=== PATIENT | female | born 1950 | race Caucasian/White ===

== ENCOUNTER 2017-05-26 19:05 | Emergency (ER) | payer OTHER, SELFPAY ==
[2017-05-26 19:05] VITALS: BP 145/75; PULSE 96; RESP 19; TEMP 36.1; O2SAT 98; BMI 24.7
--- NOTE | 2017-05-26 19:15 | RAD_ITS ---
STUDY: X-RAY CHEST REASON FOR EXAM: Female, 66 years old. Productive cough x10 days TECHNIQUE: PA and lateral views of the chest. COMPARISON: None. FINDINGS: The lungs are clear and expanded. There is no demonstrated pleural abnormality. Normal size heart. Normal mediastinum and rey. Normal visualized pulmonary arteries. There are calcified plaques of the aortic arch. Normal visualized thoracic spine. Normal visualized ribs, clavicles, and shoulders. There is no demonstrated abnormality of the visualized soft tissue structures of the upper abdomen. RAD/Chest PA and Lateral IMPRESSION: Calcified plaques of the aortic arch. No acute cardiopulmonary disease process is seen. Electronically Signed: Hermes Wiggins MD at 19:43 EDT , Service support ,
--- NOTE | 2017-05-26 21:40 | EKG12_ITS ---
Test Reason : SOB Blood Pressure : / mmHG Vent. Rate : 097 BPM Atrial Rate : 097 BPM P-R Int : 116 ms QRS Dur : 078 ms QT Int : 348 ms P-R-T Axes : 033 024 026 degrees QTc Int : 441 ms Normal sinus rhythm Normal ECG Confirmed by MONICA BROWN MD ([id number]), editor [employer] ([id number]) on 05/28/2017 3:36:37 PM Referred By: DELIA Confirmed By:MONICA BROWN MD
[2017-05-26 22:01] VITALS: PULSE 107; RESP 20
[2017-05-26 22:17] LABS: Absolute Lymphocyte Count 1.46 X10^3/ul (0.83-4.51); Absolute Neutrophil Count 14.7 X10^3/uL (2.0-7.7); Basophil# 0.01 X10^3/uL; Basophil% 0.1 % (0-1); Eosinophil# 0.02 X10^3/uL; Eosinophils% 0.1 % (0-5); Hematocrit 39.1 % (37-47); Hemoglobin 13.2 g/dl (12.0-15.0); Lymphocyte # 1.46 X10^3/ul (4.0); Lymphocyte % 8.1 % (19-41); Mean Corp Hgb Conc 33.8 g/gl (32-36); Mean Corpuscular Hgb 31.1 pg (27.0-32.0); Mean Platelet Vol. 10.9 fl (6.2-12.0); Monocyte# 1.59 X10^3/uL; Monocyte% 8.9 % (0-10); Platelet Count 237 K/mm3 (150-450); RBC Distribution Width CV 12.9 % (11.6-14.6); RBC Distribution Width SD 42.9 fl (35.1-43.9); Red Blood Count 4.25 M/mm3 (4.2-5.4); White Blood Count 17.9 K/mm3 (4.4-11.0)
[2017-05-26 22:19] LABS: Differential Indicated SCAN CRITERIA MET; POSITIVE COUNT NO; POSITIVE DIFFERENTIAL YES; POSITIVE MORPHOLOGY NO
[2017-05-26 22:26] VITALS: O2SAT 95
[2017-05-26] MEDS: Ipratropium/Albuterol Sulfate 3 ML AMPUL.NEB INHALATION (22:30)
[2017-05-26] MEDS: Ondansetron 4 MG/2 ML Vial IV (22:30)
[2017-05-26 22:33] LABS: Anion Gap 6 (5-15); BUN 19 mg/dL (7-18); BUN/Creat Ratio 20.3 RATIO (10-20); Chloride 98 mmol/L (98-107); Creatinine, Serum 0.94 mg/dL (0.55-1.02); D-Dimer Quantitative (DVT/PE) 0.68 FEU/ug/m (0.27-0.49); EST Glomerular Filtration Rate 63 mL/min (>60); Est Glom Filt Rate - Afr Amer 76 mL/min (>60); Estimated Creatinine Clearance 43.82 ml/min; Glucose 113 mg/dL (74-106); Potassium 3.7 mmol/L (3.5-5.1); Sodium Level 135 mmol/L (136-145)
[2017-05-26 22:36] VITALS: BP 126/67; PULSE 104; RESP 20; O2SAT 97; O2SAT 98
--- NOTE | 2017-05-26 22:37 | ED.RN ---
lab called with critical lab results. d-dimer 0.68. Dr. Latif made aware. no new orders at this time
[2017-05-26 22:40] LABS: Differential Comment SCANNED
--- NOTE | 2017-05-26 22:40 | CT_ITS ---
STUDY: CTA CHEST REASON FOR EXAM: Female, 66 years old. Cough, sore throat, chills, and headache x2 weeks, elevated d-dimer and white blood cell count RADIATION DOSAGE (If Supplied By Facility): CTDIvol = ( 9.28 ) mGy, DLP = ( 329.63 ) mGycm TECHNIQUE: The examination was performed with the intravenous administration of 75ML ml of Isovue 370 contrast material. Post-processing of the angiographic images was performed, with multiplanar reformation and 3D reconstruction. Individualized dose optimization techniques were used for this CT. COMPARISON: None. FINDINGS: Normal enhancement of the main pulmonary artery and right and left pulmonary arteries. Normal enhancement of the bilateral peripheral pulmonary arteries. There is no demonstrated pulmonary embolism. There are calcified plaques of the aortic arch. There is no demonstrated aortic dissection. Normal heart and pericardium. There are multiple nonpathologically enlarged mediastinal nodes measuring up to 6 mm in short axis. Normal hilar regions. Normal visualized trachea and bronchi. The lungs are well expanded. There are wispy atelectatic changes of the left and right lower lobes with associated bronchial wall thickening. Perihilar peribronchial cuffing is also noted. Normal pleura. Normal chest wall structures. Normal osseous structures. There is a small hiatal hernia. CT/CTA Chest W/WO Contrast IMPRESSION: There is no evidence of pulmonary embolus and. There are wispy atelectatic changes of the left and right lower lobes with associated bronchial wall thickening. Perihilar peribronchial cuffing is also noted. Electronically Signed: Hermes Wiggins MD at 23:35 EDT , Service support ,
[2017-05-27 00:04] VITALS: BP 106/55; PULSE 95; RESP 28; O2SAT 95
[2017-05-27 01:09] VITALS: O2SAT 96
--- NOTE | 2017-05-27 01:38 | ED.VISSUMM ---
- ER Visit Summary Date of Service: 05/27/17 Chief Complaint: Cough History of Present Illness: The patient is a 66 F presenting with cough, shortness of breath ?12 days. She states she went to urgent care was diagnosed with a URI. She was put on prednisone. This was 5 days ago and she has finished the course of prednisone. She continues to have persistent cough with sputum production. She denies fever but complains of chills. She has nausea with no vomiting. She has diarrhea. She denies abdominal pain. Denies chest pain. She states she has been taking cough medicine and is unable to sleep secondary to persistent cough. Physical Examination: Vitals are stable. Patient is afebrile. Alert no acute distress. HEENT exam is unremarkable. Mild pharyngeal erythema with no exudate. Uvula is midline. Neck is supple. Lungs are clear and equal bilaterally. Heart is regular rate and rhythm. Abdomen is soft nontender nondistended. Extremities are unremarkable. Skin is warm and dry. No focal neurologic deficit. Remainder of exam is unremarkable. Emergency Department Course and Treatment: EKG is sinus rhythm rate of 97 with no acute ischemic changes. Chest x-ray shows no acute process. CBC shows white count of 17.9. Chemistries showed glucose 113, BUN 19. Troponin is negative. D-dimer is 0.68. Influenza is negative. Due to elevated d-dimer, CTA chest was obtained which shows no evidence of PE. She is given albuterol Atrovent aerosols. She is given Zofran IV. She has improvement of her symptoms. She is resting comfortably. She was able to ambulate in the ED with a pulse ox of 92-96% on room air. She has been ill for 12 days and is concerned that she is not improving. She will be started on Levaquin. She is advised to follow-up with her primary care physician. Advised return to ED for worsening symptoms. Disposition: Discharge home Impression: Bronchitis This note was generated with [employer] dictation software. It may contain incorrect words, spelling, and punctuation that were not noted in review of the chart prior to signing ED Disposition - Plan for ED Patient: Chief Complaint: General Illness Instructions: Acute Bronchitis Prescriptions: Levofloxacin [Levaquin] 750 mg PO DAILY #5 tablet Referrals: Nghia Winters DO [Primary Care Provider] -
--- NOTE | 2017-05-27 01:50 | ED.DEP ---
ED Disposition - Plan for ED Patient: Chief Complaint: General Illness Instructions: Acute Bronchitis Prescriptions: Levofloxacin [Levaquin] 750 mg PO DAILY #5 tablet Referrals: Nghia Winters DO [Primary Care Provider] -
[2017-05-27] MEDS: levoFLOXacin 750 MG Tablet PO (02:03)
[2017-05-27 02:04] VITALS: BP 154/89; PULSE 107; RESP 18; RESP 24; O2SAT 97
== END 2017-05-27 02:05 | disposition home or self-care (01) ==
PROVIDERS: Emergency Provider Emergency Medicine; Family Provider Student in an Organized Health Care Education/Training Program; PCP Student in an Organized Health Care Education/Training Program
DX: J40 Bronchitis, not specified as acute or chronic (principal); R74.8 Abnormal levels of other serum enzymes; R19.7 Diarrhea, unspecified; R11.0 Nausea; I10 Essential (primary) hypertension; K21.9 Gastro-esophageal reflux disease without esophagitis; Z79.899 Other long term (current) drug therapy
CPT/HCPCS: 71046; 71275; 80048; 84484; 85025; 85379; 87804; 93005; 94640; 94760; 96361; 96374; 99285; J7030; J7040; Q9967; J2405

== ENCOUNTER → 2019-08-06 13:36 | Outpatient (CLI) | payer MEDICARE, SELFPAY ==
[2019-08-05 15:46] VITALS: BMI 24.7
--- NOTE | 2019-08-06 13:39 | BI_ITS ---
MAMMOGRAPHY - BILATERAL SCREENING REASON FOR EXAM: Female, 69 years old. Routine annual screening examination. PERTINENT HISTORY: Grandmother with breast cancer. Aunt with breast cancer. TECHNIQUE: Digital bilateral breast chely (3D mammographic acquisition) in the CC and MLO projections. 2-D mediolateral oblique (MLO) and craniocaudad (CC) views of both breasts were obtained. CAD: Full Field Digital Mammography with Computer Added Detection was performed. COMPARISON: Comparison is made with prior examination dated February 21, 2017. FINDINGS: Breast Composition: The breasts are heterogeneously dense, which may obscure small masses. There are no dominant masses or suspicious calcifications. Stable benign-appearing small axillary lymph nodes. No other significant abnormalities are identified. There has been no significant change since the prior study. BI/SCREEN MAMM (CAD) W/CHELY BILAT IMPRESSION: Stable bilateral screening mammogram. Yearly follow-up mammogram recommended. (A) ASSESSMENT CATEGORY: BIRADS Category 2: Benign. A letter regarding these results will be sent to the patient by the facility within 30 days. Approximately 10% of breast cancers are not detected by mammography. A normal mammogram should not delay biopsy of a clinically suspicious abnormality. [id number] Electronically Signed: Zbigniew Florez, at 13:36 EDT , Service support ,
== END ==
PROVIDERS: PCP Student in an Organized Health Care Education/Training Program; Referring Provider Obstetrics & Gynecology; Visit Provider Obstetrics & Gynecology
DX: Z12.31 Encounter for screening mammogram for malignant neoplasm of breast (principal)
CPT/HCPCS: 77063; 77067

== ENCOUNTER → 2019-12-14 12:08 | Outpatient (CLI) | payer MEDICARE, SELFPAY ==
[2019-08-05 15:46] VITALS: BMI 24.7
--- NOTE | 2019-12-14 12:43 | EKG12_ITS ---
Test Reason : PRE OP Blood Pressure : / mmHG Vent. Rate : 057 BPM Atrial Rate : 057 BPM P-R Int : 144 ms QRS Dur : 078 ms QT Int : 420 ms P-R-T Axes : 057 028 042 degrees QTc Int : 408 ms Sinus bradycardia Otherwise normal ECG Confirmed by STEPHANIE STEEN, MONICA ([id number]), website/blog editor MARIA D SWEET ([id number]) on 12/15/2019 8:47:35 AM Referred By: Dominick Ross Confirmed By:MONICA BROWN MD
[2019-12-14 12:56] LABS: Hematocrit 37.6 % (37-47); Hemoglobin 12.7 g/dL (12.0-15.0); Mean Corp Hgb Conc 33.8 g/dL (32-36); Mean Corpuscular Hgb 31.6 pg (27.0-32.0); Mean Corpuscular Volume 93.5 fL (81-99); Mean Platelet Vol. 11.5 fl (6.2-12.0); Platelet Count 176 K/mm3 (150-450); RBC Distribution Width SD 41.5 fl (35.1-43.9); Red Blood Count 4.02 M/mm3 (4.2-5.4)
[2019-12-14 13:36] LABS: Anion Gap 3 (5-15); BUN 17 mg/dL (7-18); BUN/Creat Ratio 17.4 RATIO (10-20); Calcium,Total 9.1 mg/dL (8.5-10.1); Chloride 106 mmol/L (98-107); Creatinine, Serum 0.98 mg/dL (0.55-1.02); EST Glomerular Filtration Rate 60 mL/min (>60); Est Glom Filt Rate - Afr Amer 72 mL/min (>60); Glucose 89 mg/dL (74-106); Potassium 3.5 mmol/L (3.5-5.1); Sodium Level 140 mmol/L (136-145)
== END ==
PROVIDERS: PCP Student in an Organized Health Care Education/Training Program; Referring Provider Orthopaedic Surgery; Visit Provider Orthopaedic Surgery
DX: Z01.810 Encounter for preprocedural cardiovascular examination (principal); Z01.818 Encounter for other preprocedural examination
CPT/HCPCS: 36415; 80048; 85027; 93005

== ENCOUNTER → 2019-12-16 09:10 | Outpatient (CLI) | payer MEDICARE, SELFPAY ==
[2019-08-05 15:46] VITALS: BMI 24.7
== END ==
PROVIDERS: PCP Student in an Organized Health Care Education/Training Program; Referring Provider Physician Assistant; Visit Provider Physician Assistant
DX: Z20.828 Contact with and (suspected) exposure to other viral communicable diseases (principal); Z11.59 Encounter for screening for other viral diseases
CPT/HCPCS: 87635; C9803; U0003

== ENCOUNTER → 2020-08-07 | Outpatient (CLI) | payer OTHER, SELFPAY ==
[2020-08-07 13:11] VITALS: BMI 24.7
== END | disposition home or self-care (01) ==
LOC: LABSPEC 15:30
PROVIDERS: PCP Student in an Organized Health Care Education/Training Program; Referring Provider Obstetrics & Gynecology; Visit Provider Obstetrics & Gynecology
DX: N32.81 Overactive bladder (principal); N89.8 Other specified noninflammatory disorders of vagina
CPT/HCPCS: 87070; 87086; 87205

== ENCOUNTER → 2020-08-18 13:33 | Outpatient (CLI) | payer MEDICARE, SELFPAY ==
[2020-08-07 13:11] VITALS: BMI 24.7
--- NOTE | 2020-08-18 13:35 | BI_ITS ---
MAMMOGRAPHY - BILATERAL SCREENING REASON FOR EXAM: Female, 70 years old. Routine annual screening examination. PERTINENT HISTORY: Grandmother with breast cancer. Aunt with breast cancer. TECHNIQUE: Digital bilateral breast chely (3D mammographic acquisition) in the CC and MLO projections. 2-D mediolateral oblique (MLO) and craniocaudad (CC) views of both breasts were obtained. CAD: Full Field Digital Mammography with Computer Added Detection was performed. COMPARISON: Comparison is made with prior study dated 08/06/2019 and 02/21/2017. FINDINGS: Breast Composition: The breasts are heterogeneously dense, which may obscure small masses. There are no dominant masses or suspicious calcifications. Stable small benign-appearing bilateral axillary No other significant abnormalities are identified. There has been no significant change since the prior study. BI/SCRN MAMM (CAD)W/CHELY BILAT IMPRESSION: Stable bilateral screening mammogram. Yearly follow-up mammogram recommended. (A) ASSESSMENT CATEGORY: BIRADS Category 2: Benign. A letter regarding these results will be sent to the patient by the facility within 30 days. Approximately 10% of breast cancers are not detected by mammography. A normal mammogram should not delay biopsy of a clinically suspicious abnormality. [id number] Electronically Signed: Zbigniew Florez MD at 14:22 EDT , Service support ,
== END ==
PROVIDERS: PCP Student in an Organized Health Care Education/Training Program; Referring Provider Obstetrics & Gynecology; Visit Provider Obstetrics & Gynecology
DX: Z12.31 Encounter for screening mammogram for malignant neoplasm of breast (principal); Z80.3 Family history of malignant neoplasm of breast
CPT/HCPCS: 77063; 77067

== ENCOUNTER 2021-01-27 16:30 | Emergency (ER) | payer MEDICARE, SELFPAY ==
[2021-01-27 16:32] VITALS: BP 151/82; PULSE 59; RESP 16; TEMP 36.1; O2SAT 98; BMI 24.7
--- NOTE | 2021-01-27 16:58 | ED.RN ---
Patient gives okay to give info to daughter, Teresita, if she calls. Teresita can be reached at [phone]. Patient has a visitor at this time.
--- NOTE | 2021-01-27 16:59 | EKG12_ITS ---
Test Reason : DIZZY Blood Pressure : / mmHG Vent. Rate : 059 BPM Atrial Rate : 059 BPM P-R Int : 130 ms QRS Dur : 082 ms QT Int : 426 ms P-R-T Axes : 041 009 038 degrees QTc Int : 421 ms Sinus bradycardia Otherwise normal ECG Confirmed by STEPHANIE STEEN, MONICA ([id number]), map editor MARIA D SWEET ([id number]) on 01/29/2021 10:59:15 AM Referred By: LUKAS Confirmed By:MONICA BROWN MD
--- NOTE | 2021-01-27 16:59 | CT_ITS ---
STUDY: CTA HEAD AND NECK WITH CONTRAST REASON FOR EXAM: Female, 70 years old. TIA RADIATION DOSAGE (If Supplied By Facility): CTDIvol = ( 25.47 ) mGy, DLP = ( 1298.11 ) mGycm TECHNIQUE: CT angiography was performed with a multi-detector CT scanner. Data acquisition was obtained from the skull base through the vertex following intravenous administration of IV 100mL Isovue-370. MIP images were reconstructed from the axial data set. Post-processing of the angiographic images was performed, with multiplanar reformation and 3D reconstruction. Individualized dose optimization techniques were used for this CT. COMPARISON: No relevant priors. FINDINGS: Normal bilateral petrous carotid arteries. Calcific plaquing of the right cavernous carotid artery with a normal supraclinoid bifurcation. Calcific plaquing of the left cavernous carotid artery with a normal supraclinoid bifurcation. Normal right A1 segments of the anterior cerebral artery. Normal left A1 segments of the anterior cerebral artery. Normal intact anterior communicating artery (ACOM). Normal bilateral A2 segments of the anterior cerebral arteries. Normal right M1 and M2 segments of the middle cerebral arteries, with a normal M1 bifurcation. Normal left M1 and M2 segments of the middle cerebral arteries, with a normal M1 bifurcation. Nonvisualized right posterior communicating artery (PCOM consistent with normal variant). Normal left posterior communicating artery (PCOM). Normal bilateral vertebral arteries. Normal basilar artery with a normal basilar bifurcation. The visualized bilateral superior cerebellar (SCA) arteries are normal. Normal bilateral P1, P2 and visualized P3 segments of the posterior cerebral arteries. There is no demonstrated aneurysm of the [place]. AORTIC ARCH: Normal visualized aortic arch. Normal origins of the brachiocephalic, left common carotid, and left subclavian arteries. RIGHT CAROTID ARTERIES: Mild calcific plaquing of the right common carotid artery (CCA). Mild to moderate calcific and soft plaquing of the right common carotid bulb. Mild calcific plaquing of the origin of the right internal carotid (ICA) artery without a hemodynamically significant stenosis. Normal visualized cervical portion of the right internal carotid artery. Normal origin of the right external carotid artery (ECA). LEFT CAROTID ARTERIES: Normal left common carotid artery (CCA). Mild to moderate calcific plaquing of the left common carotid bulb. Moderate calcific plaquing of origin of the left internal carotid (ICA) artery without a hemodynamically significant stenosis. Mild calcific plaquing of the visualized cervical portion of the left internal carotid artery. Normal origin of the left external carotid artery (ECA). VERTEBRAL ARTERIES: Normal bilateral vertebral arteries. CT/CTA Head AND Neck W/ Contrast IMPRESSION: Mild atherosclerotic changes of the brain. Moderate atherosclerotic changes of the cervical carotids slightly worse on the left without evidence for hemodynamically significant stenosis utilizing NASCET criteria Electronically Signed: Justo Tubbs MD at 18:50 EST , Service support ,
--- NOTE | 2021-01-27 17:01 | EX.ED.DYSGE1 ---
HPI History of Present Illness Chief Complaint: Dizziness Informant: patient and spouse/S.O. Onset/Context/Timing Onset: Yesterday Current Severity: Mild Maximum Severity: Severe Narrative Narrative: Patient presents with recurrent episodes of intermittent dizziness and nausea. She states initial episode occurred yesterday while she was at a local drugstore. They called her up to the counter to warehouse order picker her medication and she felt very dizzy and had to hold onto items. She states she had difficulty speaking and was dropping items. She is unsure if it was just with one arm. Her was called and picked her up. She states she went to bed early last night when she woke up this morning she felt back to baseline. As the day has gone on she has had a couple separate episodes where she gets very dizzy and weak again. denies that she has had difficulty with speech today. [facility] Medical History Anxiety Hyperlipidemia Hypertension Home Medications acyclovir 200 mg PO DAILY 05/26/17 [History Last Taken Unknown] hydrochlorothiazide 25 mg PO DAILY 05/26/17 [History Last Taken Unknown] lisinopril 10 mg PO DAILY 05/26/17 [History Last Taken Unknown] oxybutynin chloride 5 mg PO DAILY 05/26/17 [History Last Taken Unknown] lactobacillus combination no.8 3 billion cell capsule 3,000 mmu cells PO DAILY 08/05/19 [History Last Taken Unknown] omeprazole 20 mg capsule,delayed release 20 mg PO DAILY 08/05/19 [History Last Taken Unknown] rosuvastatin 20 mg tablet 20 mg PO DAILY 08/05/19 [History Last Taken Unknown] turmeric 400 mg capsule mg PO 08/07/20 [History Last Taken Unknown] Allergy/AdvReac Type Severity Reaction Status Date / Time acetaminophen [From Tylenol] Allergy Mild other Verified 01/27/21 16:31 amoxicillin [From Augmentin] Allergy Mild other Verified 01/27/21 16:31 clavulanic acid Allergy Mild other Verified 01/27/21 16:31 [From Augmentin] codeine Allergy Mild other Verified 01/27/21 16:31 erythromycin base Allergy Mild other Verified 01/27/21 16:31 nitrofurantoin Allergy Mild other Verified 01/27/21 16:31 [From Macrobid] Sulfa (Sulfonamide Allergy Mild other Verified 01/27/21 16:31 Antibiotics) sulfamethoxazole Allergy Mild other Verified 01/27/21 16:31 [From Bactrim] Tetracyclines Allergy Mild other Verified 01/27/21 16:31 trimethoprim [From Bactrim] Allergy Mild other Verified 01/27/21 16:31 venom-honey bee Allergy Mild other Verified 01/27/21 16:31 Family History Aunt Breast cancer Grandmother Breast cancer Surgical History H/O hernia repair Tubal ligation status Social History Smoking Status: Never smoker alcohol intake: current details: social substance use type: does not use caffeine: Yes what type of physical activity do you participate in: walking seatbelt use: always do you feel safe at home: Yes additional social history: Pop- both are retired ROS ROS ED Constitutional Constitutional ED: Denies chills or fever(s) Eyes Eyes: Denies change in vision ENT ENT ED: Denies sore throat Cardiovascular Cardiovascular: Denies chest pain or palpitations Respiratory/Chest Respiratory/Chest: Denies cough or dyspnea Gastrointestinal Gastrointestinal: Reports nausea; Denies abdominal pain, diarrhea or vomiting Genitourinary Genitourinary ED: Denies dysuria Musculoskeletal Musculoskeletal: Denies back pain Integumentary Denies rash Neurologic Neurologic: Reports weakness; Denies headache(s) or paresthesias Allergic/Immunologic Allergic/Immunologic ED: Denies urticaria EXAM Physical Exam Const Vital Signs: 01/27/21 16:32 01/27/21 18:04 Temperature 96.9 F L Temperature Source Temporal Pulse Rate 59 L 67 Respiratory Rate 16 21 H Blood Pressure 151/82 H 145/85 H Blood Pressure Mean 105 105 Pulse Ox 98 99 Oxygen Delivery Method Room Air Room Air Positive well nourished and well developed General Appearance ED: well developed HEENT Reports moist mucous membranes Eyes PERRL and EOMs intact bilaterally Neck supple Chest Wall inspection of chest normal and palpation of chest normal Resp normal respiratory effort and clear to auscultation bilaterally Cardio regular rate and regular rhythm GI normal to inspection, nondistended, normoactive bowel sounds and non-tender Palpation: soft Neuro oriented x3 Neuro Narrative: Resting with eyes closed. Will open eyes to voice. No focal neurologic deficits. Sensorium / Orientation: alert Psych mental status grossly normal Skin no rashes or lesions noted MDM MDM MDM Narrative Medical decision making narrative: Patient describes intermittent dizziness along with some problems dropping items and some difficulty with speech yesterday. In light of this TIA work-up was pursued. EKG, labs, CTA head and neck ordered. Urinalysis and Covid test obtained. Lab Data Attestation: I reviewed the patient's lab results. Labs: Laboratory Results - last 24 hr 01/27/21 01/27/21 01/27/21 16:52 16:52 18:05 WBC 4.3 L RBC 4.12 L Hgb 12.9 Hct 37.6 MCV 91.3 MCH 31.3 MCHC 34.3 RDW Std Deviation 41.1 RDW Coeff of Inez 12.3 Plt Count 169 MPV 11.5 Immature Gran % (Auto) 0.200 Neut % (Auto) 57.0 Lymph % (Auto) 29.1 Steele % (Auto) 10.9 H Eos % (Auto) 2.6 Baso % (Auto) 0.2 Absolute Neuts (auto) 2.5 Absolute Lymphs (auto) 1.25 Nucleated RBC % 0 Sodium 141 Potassium 3.7 Chloride 107 Carbon Dioxide 28.0 Anion Gap 6 BUN 19 H Creatinine 0.98 Estim Creat Clear Calc 41.64 Est GFR (MDRD) Af Amer 72 Est GFR (MDRD) Non-Af 60 BUN/Creatinine Ratio 19.4 Glucose 113 H Calcium 9.0 Total Bilirubin 0.70 Direct Bilirubin 0.21 AST 21 ALT 22 Alkaline Phosphatase 99 Troponin I High Sens 6 Total Protein 6.8 Albumin 3.6 Globulin 3.2 Urine Color Straw Urine Clarity Clear Urine pH 6.5 Ur Specific Jay 1.010 Urine Protein Negative Urine Glucose (UA) Normal Urine Ketones Negative Urine Occult Blood Negative Urine Nitrite Negative Urine Bilirubin Negative Urine Urobilinogen Normal Ur Leukocyte Esterase Negative Urine RBC 0-5 SEEN Urine WBC 0-5 SEEN Ur Squamous Epith Cells 0-5 SEEN Urine Bacteria 0 SEEN Urine Mucus 0 SEEN Radiography Diagnostic Testing: Clinical Impression(s) from Imaging Studies Head/Neck CTA 01/27/21 16:59 IMPRESSION: Mild atherosclerotic changes of the brain. Moderate atherosclerotic changes of the cervical carotids slightly worse on the left without evidence for hemodynamically significant stenosis utilizing NASCET criteria Electronically Signed: Justo Tubbs MD at 18:50 EST , Service support , EKG Initial EKG: Attestation: I personally reviewed and interpreted this EKG as follows: Interpretation: Sinus Bradycardia (Sinus bradycardia 59 bpm. No acute ischemia.) Treatment and Re-Evaluation Comments:: On repeat evaluation patient resting comfortably. Work-up here is unremarkable. Patient has been up ambulating in the halls and states she feels back to baseline currently. We discussed concern for possible TIA and I advised her the ultimate test would be MRI. She would prefer to go home and not stay for this. I will speak with her PCP or whoever is on-call tonight to help arrange close follow-up. Patient is given close follow-up and return instructions. Discharge Plan Triage Chief Complaint: Dizziness ED Provider: Sanjuana Fuller Dx/Rx/DC Orders Clinical Impression: Dizziness Instructions: ED Dizziness, Uncertain Cause Prescriptions: No Action omeprazole 20 mg capsule,delayed release(DR/EC) 20 mg PO DAILY RF: 0 rosuvastatin [Crestor] 20 mg tablet 20 mg PO DAILY RF: 0 Adult Probiotic 3 billion cell capsule 3,000 mmu cells PO DAILY RF: 0 turmeric 400 mg capsule PO RF: 0 lisinopril 10 MG tablet 10 mg PO DAILY RF: 0 oxybutynin chloride 5 MG tablet 5 mg PO DAILY RF: 0 acyclovir 200 MG capsule 200 mg PO DAILY RF: 0 hydrochlorothiazide 25 MG tablet 25 mg PO DAILY RF: 0 Primary Care Provider: Nghia Winters Referrals: Nghia Winters, [Primary Care Provider] - As soon as possible Disposition Disposition: Home, Self Care
[2021-01-27 17:17] LABS: Absolute Lymphocyte Count 1.25 X10^3/uL (0.83-4.51); Absolute Neutrophil Count 2.5 X10^3/uL (2.0-7.7); Basophil# 0.01 X10^3/uL; Basophil% 0.2 % (0-1); Eosinophil# 0.11 X10^3/uL; Eosinophils% 2.6 % (0-5); Hematocrit 37.6 % (37-47); Hemoglobin 12.9 g/dL (12.0-15.0); Lymphocyte # 1.25 X10^3/ul (0.83-4.51); Lymphocyte % 29.1 % (19-41); Mean Corp Hgb Conc 34.3 g/dL (32-36); Mean Corpuscular Hgb 31.3 pg (27.0-32.0); Mean Corpuscular Volume 91.3 fL (81-99); Mean Platelet Vol. 11.5 fl (6.2-12.0); Monocyte# 0.47 X10^3/uL; Monocyte% 10.9 % (0-10); NRBC Flagged by Analyzer 0 % (0-5); Neutrophil # 2.45 X10^3/uL (2.7-7.7); Platelet Count 169 K/mm3 (150-450); RBC Distribution Width CV 12.3 % (11.6-14.6); RBC Distribution Width SD 41.1 fl (35.1-43.9); Red Blood Count 4.12 M/mm3 (4.2-5.4); White Blood Count 4.3 K/mm3 (4.4-11.0)
[2021-01-27 17:34] LABS: AST(SGOT) 21 U/L (15-37); Alanine Aminotransfer ALT/SGPT 22 U/L (13-56); Albumin, Serum 3.6 g/dL (3.2-5.0); Alkaline Phosphatase 99 U/L (45-117); Anion Gap 6 (5-15); BUN 19 mg/dL (7-18); BUN/Creat Ratio 19.4 RATIO (10-20); Bilirubin, Direct 0.21 mg/dL (0.00-0.30); Chloride 107 mmol/L (98-107); Creatinine, Serum 0.98 mg/dL (0.55-1.02); EST Glomerular Filtration Rate 60 mL/min (>60); Est Glom Filt Rate - Afr Amer 72 mL/min (>60); Estimated Creatinine Clearance 41.64 ml/min; Globulin 3.2 g/dL (2.2-4.2); Glucose 113 mg/dL (74-106); Potassium 3.7 mmol/L (3.5-5.1); Protein, Total 6.8 g/dL (6.4-8.2); Sodium Level 141 mmol/L (136-145); Troponin-I HS 6 pg/mL (3.0-54.0)
[2021-01-27 18:04] VITALS: BP 145/85; PULSE 67; RESP 21; O2SAT 99
[2021-01-27 18:11] LABS: Bacteria 0 SEEN /hpf (None Seen); Mucous, Urine 0 SEEN /hpf (<or=2+)
[2021-01-27 18:12] LABS: Color, Urine Straw (Yellow); Glucose, Dipstick Normal (Normal); Ketone-Dipstick Negative (Negative); Leukocyte Esterase-Dipstick Negative /ul (Negative); Nitrite-Dipstick Negative (Negative); Occult Blood-Urine Negative /ul (Negative); Protein-Dipstick Negative (Negative); Urine Bilirubin Dipstick Negative (Negative); Urine Clarity Clear (Clear); Urine Urobilinogen Normal (Normal); Urine pH 6.5 (5.0 - 8.0)
[2021-01-27 18:19] LABS: White Blood Cells 0-5 SEEN /hpf (0-5)
[2021-01-27 18:20] LABS: Red Blood Cells-Urine 0-5 SEEN /hpf (0-5); Squamous Epithelial Cells - UA 0-5 SEEN /hpf (5-10)
[2021-01-27 19:12] VITALS: BP 151/91; PULSE 70; RESP 18; O2SAT 98
== END 2021-01-27 19:14 | disposition home or self-care (01) ==
PROVIDERS: Emergency Provider Emergency Medicine; PCP Student in an Organized Health Care Education/Training Program
DX: R42 Dizziness and giddiness (principal); R11.0 Nausea; Z20.822 Contact with and (suspected) exposure to COVID-19; I10 Essential (primary) hypertension; E78.5 Hyperlipidemia, unspecified
CPT/HCPCS: 70496; 70498; 80048; 80076; 81001; 84484; 85025; 87426; 93005; 99284; Q9967; A4216

== ENCOUNTER → 2021-08-20 | Outpatient (CLI) | payer MEDICARE, SELFPAY ==
--- NOTE | 2021-08-20 15:49 | BI_ITS ---
MAMMOGRAPHY - BILATERAL SCREENING REASON FOR EXAM: Female, 71 years old. Routine annual screening examination. PERTINENT HISTORY: Grandmother with breast cancer. On with breast cancer. TECHNIQUE: Digital bilateral breast chely (3D mammographic acquisition) in the CC and MLO projections. 2-D mediolateral oblique (MLO) and craniocaudad (CC) views of both breasts were obtained. CAD: Full Field Digital Mammography with Computer Added Detection was performed. COMPARISON: Comparison is made with prior study dated 08/18/2020 and 08/06/2019. FINDINGS: Breast Composition: The breasts are heterogeneously dense, which may obscure small masses. There are no dominant masses or suspicious calcifications. Stable glandular asymmetry seen along the medial aspect of the left breast on the craniocaudad view. Stable small benign appearing bilateral axillary nodes. No other significant abnormalities are identified. There has been no significant change since the prior study. BI/SCRN MAMM (CAD)W/CHELY BILAT IMPRESSION: Stable bilateral screening mammogram. Yearly follow-up mammogram recommended. (A) ASSESSMENT CATEGORY: BIRADS Category 2: Benign. A letter regarding these results will be sent to the patient by the facility within 30 days. Approximately 10% of breast cancers are not detected by mammography. A normal mammogram should not delay biopsy of a clinically suspicious abnormality. [id number] Electronically Signed: Zbigniew Florez MD at 8:12 EDT ,
== END | disposition home or self-care (01) ==
LOC: OPBI 15:47
PROVIDERS: PCP Student in an Organized Health Care Education/Training Program; Visit Provider Student in an Organized Health Care Education/Training Program
DX: Z12.31 Encounter for screening mammogram for malignant neoplasm of breast (principal)
CPT/HCPCS: 77063; 77067

== ENCOUNTER 2021-10-10 15:36 | Emergency (ER) | payer MEDICARE, SELFPAY ==
[2021-10-10 15:37] VITALS: BP 158/82; PULSE 71; RESP 16; TEMP 36.7; O2SAT 99; BMI 23.9
--- NOTE | 2021-10-10 15:58 | EKG12_ITS ---
Test Reason : CP Blood Pressure : / mmHG Vent. Rate : 057 BPM Atrial Rate : 057 BPM P-R Int : 144 ms QRS Dur : 086 ms QT Int : 412 ms P-R-T Axes : 048 002 015 degrees QTc Int : 401 ms Sinus bradycardia Minimal voltage criteria for LVH, may be normal variant ( R in aVL ) Borderline ECG Confirmed by OK STEEN, TALISHA ([id number]), supervising editor news reel MARIA D SWEET ([id number]) on 10/15/2021 11:09:54 AM Referred By: Petty Confirmed By:KORIN CONNELL MD
--- NOTE | 2021-10-10 15:59 | ED.VIS.CHEST ---
HPI History of Present Illness Chief Complaint: Chest Pain Informant: patient and PCP Narrative Narrative: 71-year-old female history of hypercholesterolemia, hypertension, and GERD presenting to the emergency department chief complaint of chest pain. Patient states for the past 3 days she has had waxing and waning/intermittent sharp chest pain. She states its worse with food. Does not radiate anywhere. She denies any associated shortness of breath or nausea or sweating. She states that typically she has had this in the past and would take some ibuprofen and it resolved but this was different and that it seemed to stick around more. Today however she has not had any symptoms. She states she still feels slightly funny in her chest. She went to see her PCP and was referred to the emergency department for admission. Patient denies any black or bloody stools. She states that she has duodenal reflux. She is takes omeprazole and a antacid. No back pain. No arm or leg symptoms. She states that her familial heart disease is significant only for rheumatic heart and her brother. She notes that she has a history of carotid artery stenosis but they are not to the point where they need to be intervened upon. She is a non-smoker. [facility] Medical History Anxiety Hyperlipidemia Hypertension Home Medications acyclovir 200 mg capsule 200 mg PO DAILY 05/26/17 [History Last Taken Unknown] hydrochlorothiazide 25 mg tablet 25 mg PO DAILY 05/26/17 [History Last Taken Unknown] lisinopril 10 mg tablet 10 mg PO DAILY 05/26/17 [History Last Taken Unknown] oxybutynin chloride 5 mg tablet,extended release 24 hr 5 mg PO DAILY 05/26/17 [History Last Taken Unknown] lactobacillus combination no.8 3 billion cell capsule (Adult Probiotic) 3,000 mmu cells PO DAILY 08/05/19 [History Last Taken Unknown] omeprazole 20 mg capsule,delayed release 20 mg PO DAILY 08/05/19 [History Last Taken Unknown] rosuvastatin 20 mg tablet (Crestor) 20 mg PO DAILY 08/05/19 [History Last Taken Unknown] turmeric 400 mg capsule mg PO 08/07/20 [History Last Taken Unknown] sucralfate 1 gram tablet (Carafate) 1 g PO Q6H #56 tabs 10/10/21 [Rx Last Taken Unknown] Allergy/AdvReac Type Severity Reaction Status Date / Time acetaminophen [From Tylenol] Allergy Mild other Verified 10/10/21 15:39 amoxicillin [From Augmentin] Allergy Mild other Verified 10/10/21 15:39 clavulanic acid Allergy Mild other Verified 10/10/21 15:39 [From Augmentin] codeine Allergy Mild other Verified 10/10/21 15:39 erythromycin base Allergy Mild other Verified 10/10/21 15:39 nitrofurantoin Allergy Mild other Verified 10/10/21 15:39 [From Macrobid] Sulfa (Sulfonamide Allergy Mild other Verified 10/10/21 15:39 Antibiotics) sulfamethoxazole Allergy Mild other Verified 10/10/21 15:39 [From Bactrim] Tetracyclines Allergy Mild other Verified 10/10/21 15:39 trimethoprim [From Bactrim] Allergy Mild other Verified 10/10/21 15:39 venom-honey bee Allergy Mild other Verified 10/10/21 15:39 Family History Aunt Breast cancer Grandmother Breast cancer Surgical History H/O hernia repair Tubal ligation status Social History Smoking Status: Never smoker alcohol intake: current details: social substance use type: does not use caffeine: Yes what type of physical activity do you participate in: walking seatbelt use: always do you feel safe at home: Yes additional social history: Daisha marte are retired ROS ROS ED Constitutional Constitutional ED: Denies chills or weight loss Eyes Eyes: Denies change in vision or diplopia ENT ENT ED: Denies ear pain, rhinorrhea or sore throat Cardiovascular Cardiovascular: Reports chest pain; Denies orthopnea, palpitations or racing heartbeat Respiratory/Chest Respiratory/Chest: Denies cough, dyspnea, dyspnea on exertion or orthopnea Gastrointestinal Gastrointestinal: Denies abdominal pain, diarrhea, melena, nausea or vomiting Genitourinary Genitourinary ED: Denies dysuria, hematuria or urinary frequency Musculoskeletal Musculoskeletal: Denies arthralgias or myalgias Integumentary Denies abscess or rash Neurologic Neurologic: Denies headache(s) or weakness Psychiatric Psychiatric: Denies anxiety, depression, suicidal ideation or suicidal thoughts Endocrine Endocrinology: Denies polydipsia, polyphagia or polyuria Allergic/Immunologic Allergic/Immunologic ED: Denies mouth swelling, tongue swelling or urticaria EXAM Physical Exam Const Vital Signs: 10/10/21 15:37 10/10/21 16:10 10/10/21 16:11 Temperature 98.1 F Temperature Source Temporal Pulse Rate 71 60 Respiratory Rate 16 14 Respiratory Effort Normal Non-Labored Blood Pressure 158/82 H 148/99 H Blood Pressure Mean 107 115 Pulse Ox 99 98 Oxygen Delivery Method Room Air Room Air Positive well nourished and well developed General Appearance ED: well developed HEENT Reports normocephalic, head/scalp atraumatic and moist mucous membranes Eyes PERRL and EOMs intact bilaterally Neck no lymphadenopathy, supple and no JVD Resp normal respiratory effort and clear to auscultation bilaterally Cardio regular rate, regular rhythm and no murmurs GI normal to inspection, nondistended, normoactive bowel sounds and non-tender Palpation: soft Back/Spine no CVA tenderness and normal ROM Extremity normal to inspection General Extremety ED: Negative for edema General Extremity: Negative for edema Neuro oriented x3 and CN's II-XII intact bilaterally Sensorium / Orientation: alert Motor Exam: strength 5/5 throughout Psych mental status grossly normal Mood & Affect: Negative for depressed or tearful Skin no rashes or lesions noted and no wounds Heart Score History: Slightly/Non-Suspicious ECG: Normal Age: >/= 65 years Risk Factors: 1 or 2 Risk Factors Troponin: </= Normal Limit Score: 3 MDM MDM MDM Narrative Medical decision making narrative: Basic blood work showed a white count of 4.4 hemoglobin 12.7 and platelet count of 163. Creatinine 0.98. Most importantly her troponin is 5 and this is after 3 days of constant symptoms that were waxing and waning but never went away. My interpretation of the chest x-ray is no acute process normal mediastinal silhouette. I discussed the case with our on-call emergency preparedness manager Dr. Graham. Her heart score is 3. Her symptoms are a bit atypical and have resolved. I think is most likely going to be her reflux and she may benefit from Carafate if her symptoms return in addition to her omeprazole. She may also benefit from an EGD. Patient notes understanding of the plan and is in agreement with it. Lab Data Attestation: I reviewed the patient's lab results. Labs: Laboratory Results - last 24 hr 10/10/21 10/10/21 16:10 16:10 WBC 4.4 RBC 3.97 L Hgb 12.7 Hct 36.5 L MCV 91.9 MCH 32.0 MCHC 34.8 RDW Std Deviation 42.2 RDW Coeff of Inez 12.5 Plt Count 163 MPV 11.7 Immature Gran % (Auto) 0.200 Neut % (Auto) 59.9 Lymph % (Auto) 29.5 [place] % (Auto) 7.7 Eos % (Auto) 2.5 Baso % (Auto) 0.2 Absolute Neuts (auto) 2.6 Absolute Lymphs (auto) 1.30 Nucleated RBC % 0 Sodium 140 Potassium 3.5 Chloride 105 Carbon Dioxide 30.0 Anion Gap 5 BUN 17 Creatinine 0.98 Estim Creat Clear Calc 41.04 Est GFR (MDRD) Af Amer 72 Est GFR (MDRD) Non-Af 59 L BUN/Creatinine Ratio 17.3 Glucose 92 Calcium 9.4 Troponin I High Sens 5 Radiography Diagnostic Testing: Clinical Impression(s) from Imaging Studies Chest X-Ray 10/10/21 16:15 IMPRESSION: No acute cardiopulmonary process identified. Electronically Signed: Irma Trinh MD at 16:36 EDT Reading Location ID and State: [facility] / [place] Tel , Service support , EKG Initial EKG: Attestation: I personally reviewed and interpreted this EKG as follows: Comments: Sinus bradycardia with a ventricular rate of 57 bpm. Discharge Plan Triage Chief Complaint: Chest Pain ED Provider: Oskar Dove Dx/Rx/DC Orders Clinical Impression: Chest pain, Hypertension, Dyslipidemia, Esophagitis Instructions: Esophagitis Prescriptions: New sucralfate [Carafate] 1 gram tablet 1 g PO Q6H Qty: 56 0RF No Action omeprazole 20 mg capsule,delayed release(DR/EC) 20 mg PO DAILY rosuvastatin [Crestor] 20 mg tablet 20 mg PO DAILY Adult Probiotic 3 billion cell capsule 3,000 mmu cells PO DAILY Rx Instructions: administer with a meal turmeric 400 mg capsule PO lisinopril 10 MG tablet 10 mg PO DAILY Label Comments: TAKE 1 TABLET BY MOUTH ONCE DAILY. oxybutynin chloride 5 MG tablet 5 mg PO DAILY Label Comments: acyclovir 200 MG capsule 200 mg PO DAILY Label Comments: hydrochlorothiazide 25 MG tablet 25 mg PO DAILY Label Comments: TAKE 1 TABLET BY MOUTH ONCE DAILY. Primary Care Provider: Maryse Lozano NP Referrals: Sukhjinder Matthews MD [Med Staff - Active Staff] - (As needed for general surgery) Janes Fernando DO [Med Staff - Active Staff] - (For gastroenterology) Maryse Lozano NP, [employer] [Primary Care Provider] - As Needed Disposition Disposition: Home, Self Care
[2021-10-10 16:10] VITALS: BP 148/99; PULSE 60; RESP 14; O2SAT 98
--- NOTE | 2021-10-10 16:15 | RAD_ITS ---
HISTORY: chest pain. TECHNIQUE: XR Chest 1 View. COMPARISON: 05/26/2017. FINDINGS: CARDIOMEDIASTINAL BORDERS: Cardiac silhouette within normal limits in size. Mediastinal contour unremarkable with calcification of the aortic knob. LUNGS: Radiographically clear. PLEURA: No pleural effusion or pneumothorax seen. OSSEOUS STRUCTURES: Degenerative change. RAD/Chest 1 View (Portable) IMPRESSION: No acute cardiopulmonary process identified. Electronically Signed: Irma Trinh MD at 16:36 EDT ,
[2021-10-10 16:35] LABS: Absolute Neutrophil Count 2.6 X10^3/uL (2.0-7.7); Basophil# 0.01 X10^3/uL; Basophil% 0.2 % (0-1); Eosinophil# 0.11 X10^3/uL; Eosinophils% 2.5 % (0-5); Hematocrit 36.5 % (37-47); Hemoglobin 12.7 g/dL (12.0-15.0); Lymphocyte % 29.5 % (19-41); Mean Corp Hgb Conc 34.8 g/dL (32-36); Mean Corpuscular Volume 91.9 fL (81-99); Mean Platelet Vol. 11.7 fl (6.2-12.0); Monocyte# 0.34 X10^3/uL; Monocyte% 7.7 % (0-10); NRBC Flagged by Analyzer 0 % (0-5); Neutrophil # 2.63 X10^3/uL (2.7-7.7); Neutrophil % 59.9 % (47-70); Platelet Count 163 K/mm3 (150-450); RBC Distribution Width CV 12.5 % (11.6-14.6); RBC Distribution Width SD 42.2 fl (35.1-43.9); Red Blood Count 3.97 M/mm3 (4.2-5.4); White Blood Count 4.4 K/mm3 (4.4-11.0)
[2021-10-10 16:36] LABS: Anion Gap 5 (5-15); BUN 17 mg/dL (7-18); BUN/Creat Ratio 17.3 RATIO (10-20); Calcium,Total 9.4 mg/dL (8.5-10.1); Chloride 105 mmol/L (98-107); Creatinine, Serum 0.98 mg/dL (0.55-1.02); EST Glomerular Filtration Rate 59 mL/min (>60); Est Glom Filt Rate - Afr Amer 72 mL/min (>60); Estimated Creatinine Clearance 41.04 ml/min; Glucose 92 mg/dL (74-106); Potassium 3.5 mmol/L (3.5-5.1); Sodium Level 140 mmol/L (136-145); Troponin-I HS (w/2H Reflex) 5 pg/mL (3.0-54.0)
[2021-10-10 17:52] VITALS: BP 150/76; PULSE 60; RESP 16; O2SAT 97
[2021-10-10 18:12] LABS: Reflex Troponin-HS? (from REC) Y
== END 2021-10-10 17:53 | disposition home or self-care (01) ==
PROVIDERS: Emergency Provider Emergency Medicine; PCP Nurse Practitioner Family; Visit Provider Emergency Medicine
DX: R07.9 Chest pain, unspecified (principal); I10 Essential (primary) hypertension; E78.00 Pure hypercholesterolemia, unspecified; K21.00 Gastro-esophageal reflux disease with esophagitis, without bleeding; Z79.899 Other long term (current) drug therapy
CPT/HCPCS: 71045; 80048; 84484; 85025; 93005; 99284; A4216

== ENCOUNTER 2022-01-24 13:14 | Emergency (ER) | payer MEDICARE, SELFPAY ==
[2022-01-24 13:16] VITALS: BP 103/65; PULSE 94; RESP 15; TEMP 36.9; O2SAT 95; BMI 25.4
--- NOTE | 2022-01-24 13:52 | EDS_ITS ---
HPI <ROBERTA Thornton - Last Filed: 01/24/22 18:46> History of Present Illness Chief Complaint: Nausea/Vomiting/Diarrhea Narrative Narrative: Patient presents with her granddaughter after testing COVID-positive yesterday. However, she states she has had a fever, nausea, vomiting, and diarrhea on and off for the past 7 days. She states she feels dehydrated and would like to receive IV fluids. She denies any shortness of breath, difficulty breathing, and chest pain. PFSH <ROBERTA Thornton - Last Filed: 01/24/22 18:46> [facility] Medical History Anxiety Hyperlipidemia Hypertension Home Medications acyclovir 200 mg capsule 200 mg PO DAILY 05/26/17 [History Last Taken Unknown] hydrochlorothiazide 25 mg tablet 25 mg PO DAILY 05/26/17 [History Last Taken Unknown] lisinopril 10 mg tablet 10 mg PO DAILY 05/26/17 [History Last Taken Unknown] oxybutynin chloride 5 mg tablet,extended release 24 hr 5 mg PO DAILY 05/26/17 [History Last Taken Unknown] lactobacillus combination no.8 3 billion cell capsule (Adult Probiotic) 3,000 mmu cells PO DAILY 08/05/19 [History Last Taken Unknown] omeprazole 20 mg capsule,delayed release 20 mg PO DAILY 08/05/19 [History Last Taken Unknown] rosuvastatin 20 mg tablet (Crestor) 20 mg PO DAILY 08/05/19 [History Last Taken Unknown] turmeric 400 mg capsule 400 mg PO DAILY 08/07/20 [History Last Taken Unknown] sucralfate 1 gram tablet (Carafate) 1 g PO Q6H #56 tabs 10/10/21 [Rx Last Taken Unknown] ondansetron HCl 4 mg tablet 4 mg PO Q8H PRN nausea and vomiting #20 tabs 01/24/22 [Rx Last Taken Unknown] Allergy/AdvReac Type Severity Reaction Status Date / Time acetaminophen [From Tylenol] Allergy Mild other Verified 10/10/21 15:39 amoxicillin [From Augmentin] Allergy Mild other Verified 10/10/21 15:39 clavulanic acid Allergy Mild other Verified 10/10/21 15:39 [From Augmentin] codeine Allergy Mild other Verified 10/10/21 15:39 erythromycin base Allergy Mild other Verified 10/10/21 15:39 nitrofurantoin Allergy Mild other Verified 10/10/21 15:39 [From Macrobid] Sulfa (Sulfonamide Allergy Mild other Verified 10/10/21 15:39 Antibiotics) sulfamethoxazole Allergy Mild other Verified 10/10/21 15:39 [From Bactrim] Tetracyclines Allergy Mild other Verified 10/10/21 15:39 trimethoprim [From Bactrim] Allergy Mild other Verified 10/10/21 15:39 venom-honey bee Allergy Mild other Verified 10/10/21 15:39 Family History Aunt Breast cancer Grandmother Breast cancer Surgical History H/O hernia repair Tubal ligation status Social History Smoking Status: Never smoker alcohol intake: current details: social substance use type: does not use caffeine: Yes what type of physical activity do you participate in: walking seatbelt use: always do you feel safe at home: Yes additional social history: Pop- both are retired ROS <ROBERTA Thornton - Last Filed: 01/24/22 18:46> ROS ED Constitutional Constitutional ED: Reports fever(s) Eyes Eyes: Denies change in vision ENT ENT ED: Reports rhinorrhea; Denies sore throat Respiratory/Chest Respiratory/Chest: Reports cough; Denies dyspnea, shortness of breath at rest or shortness of breath with exertion Gastrointestinal Gastrointestinal: Reports abdominal pain, diarrhea, nausea and vomiting; Denies constipation Genitourinary Genitourinary ED: Denies dysuria or hematuria Musculoskeletal Musculoskeletal: Denies myalgias Integumentary Denies Abrasions or rash Neurologic Neurologic: Reports weakness; Denies headache(s) EXAM <ROBERTA Thornton - Last Filed: 01/24/22 18:46> Physical Exam Const Vital Signs: 01/24/22 13:16 01/24/22 16:28 Temperature 98.4 F Temperature Source Temporal Pulse Rate 94 81 Respiratory Rate 15 16 Blood Pressure 103/65 108/67 Blood Pressure Mean 77 80 Pulse Ox 95 97 Oxygen Delivery Method Room Air Room Air Positive well nourished HEENT Reports dry mucous membranes Mouth ED: Yes dry mucous membranes Mouth: dry mucous membranes Eyes PERRL and EOMs intact bilaterally Neck supple General: Negative for tenderness Resp normal respiratory effort and clear to auscultation bilaterally Auscultation: Negative for rales, rhonchi, wheezes or diminished lung sounds Cardio regular rate, regular rhythm and no murmurs GI non-tender, non-distended and no masses; Negative for hepatosplenomegaly Palpation: soft Extremity normal to inspection General Extremety ED: Negative for edema General Extremity: Negative for edema Neuro oriented x3 and no sensory deficits noted Sensorium / Orientation: alert Psych mental status grossly normal Skin no rashes or lesions noted and no wounds <Dr. Flash Yin DO - Last Filed: 01/24/22 20:27> Physical Exam Const Vital Signs: 01/24/22 13:16 01/24/22 16:28 Temperature 98.4 F Temperature Source Temporal Pulse Rate 94 81 Respiratory Rate 15 16 Blood Pressure 103/65 108/67 Blood Pressure Mean 77 80 Pulse Ox 95 97 Oxygen Delivery Method Room Air Room Air MDM <ROBERTA Thornton - Last Filed: 01/24/22 18:46> [facility] MDM Narrative Medical decision making narrative: Patient's pulse ox has remained above 95% here in the ED. after administration of IV fluids she felt stable and wanted to go home. After receiving fluids she appeared to be much more comfortable. We replaced her potassium because it was low, made sure she was able to walk okay, and advised her to return if any new or worsening symptoms such as difficulty breathing or shortness of breath. She has been encouraged to drink plenty of fluids to prevent dehydration. She has been given a prescription of Zofran. Lab Data Attestation: I reviewed the patient's lab results. Labs: Laboratory Results - last 24 hr 01/24/22 01/24/22 14:19 14:19 WBC 6.9 RBC 4.51 Hgb 14.2 Hct 40.2 MCV 89.1 MCH 31.5 MCHC 35.3 RDW Std Deviation 38.5 RDW Coeff of Inez 11.9 Plt Count 106 L MPV 12.0 Immature Gran % (Auto) 0.400 Neut % (Auto) 71.1 H Lymph % (Auto) 21.0 [place] % (Auto) 7.4 Eos % (Auto) 0.0 Baso % (Auto) 0.1 Absolute Neuts (auto) 4.9 Absolute Lymphs (auto) 1.45 Nucleated RBC % 0 Sodium 136 Potassium 3.4 L Chloride 97 L Carbon Dioxide 31.0 Anion Gap 8 BUN 26 H Creatinine 1.03 H Estim Creat Clear Calc 37.26 Est GFR (MDRD) Af Amer 68 Est GFR (MDRD) Non-Af 56 L BUN/Creatinine Ratio 25.2 H Glucose 98 Calcium 9.0 <Dr. Flash Yin, DO - Last Filed: 01/24/22 20:27> MDM MDM Narrative Medical decision making narrative: Patient's pulse ox has remained above 95% here in the ED. after administration of IV fluids she felt stable and wanted to go home. After receiving fluids she appeared to be much more comfortable. We replaced her potassium because it was low, made sure she was able to walk okay, and advised her to return if any new or worsening symptoms such as difficulty breathing or shortness of breath. She has been encouraged to drink plenty of fluids to prevent dehydration. She has been given a prescription of Zofran. Attending note: Patient seen and evaluated with corner trimmer operator. I perform my own [id number] evaluation. I agree with the plan of work-up. Symptoms for the past week, found positive yesterday. Vomiting diarrhea. No dyspnea, no current cough. She is vaccinated, first infection. Exposure from likely . Exam nontoxic vital stable soft abdomen. Normal lungs. With her vomiting labs were obtained potassium 3.4 creatinine 1.03 sodium 136. She given IV fluids antiemetics she is tolerating oral intake. Potassium replaced. Prescription for Zofran. Outpatient follow-up. Patient able to ambulate in the ED. All questions were answered. Lab Data Labs: Laboratory Results - last 24 hr 01/24/22 01/24/22 14:19 14:19 WBC 6.9 RBC 4.51 Hgb 14.2 Hct 40.2 MCV 89.1 MCH 31.5 MCHC 35.3 RDW Std Deviation 38.5 RDW Coeff of Inez 11.9 Plt Count 106 L MPV 12.0 Immature Gran % (Auto) 0.400 Neut % (Auto) 71.1 H Lymph % (Auto) 21.0 [place] % (Auto) 7.4 Eos % (Auto) 0.0 Baso % (Auto) 0.1 Absolute Neuts (auto) 4.9 Absolute Lymphs (auto) 1.45 Nucleated RBC % 0 Sodium 136 Potassium 3.4 L Chloride 97 L Carbon Dioxide 31.0 Anion Gap 8 BUN 26 H Creatinine 1.03 H Estim Creat Clear Calc 37.26 Est GFR (MDRD) Af Amer 68 Est GFR (MDRD) Non-Af 56 L BUN/Creatinine Ratio 25.2 H Glucose 98 Calcium 9.0 Discharge Plan Triage Chief Complaint: Nausea/Vomiting/Diarrhea ED Midlevel Provider: Kalyn Xiong ED Provider: Flash Yin Dx/Rx/DC Orders Clinical Impression: Nausea & vomiting, COVID-19, Acute hypokalemia Prescriptions: New ondansetron HCl 4 mg tablet 4 mg PO Q8H PRN (Reason: nausea and vomiting) Qty: 20 0RF No Action omeprazole 20 mg capsule,delayed release(DR/EC) 20 mg PO DAILY rosuvastatin [Crestor] 20 mg tablet 20 mg PO DAILY Adult Probiotic 3 billion cell capsule 3,000 mmu cells PO DAILY Rx Instructions: administer with a meal turmeric 400 mg capsule 400 mg PO DAILY lisinopril 10 MG tablet 10 mg PO DAILY Label Comments: TAKE 1 TABLET BY MOUTH ONCE DAILY. oxybutynin chloride 5 MG tablet 5 mg PO DAILY Label Comments: acyclovir 200 MG capsule 200 mg PO DAILY Label Comments: hydrochlorothiazide 25 MG tablet 25 mg PO DAILY Label Comments: TAKE 1 TABLET BY MOUTH ONCE DAILY. sucralfate [Carafate] 1 gram tablet 1 g PO Q6H Qty: 56 0RF Primary Care Provider: Nghia Winters Referrals: Nghia Winters [Primary Care Provider] - 3-5 Days if not improving Activity Restrictions/Additional Instructions: Please seek medical attention for any new or worsening symptoms especially if you develop difficulty breathing or shortness of breath. Try to stay well- hydrated by drinking plenty of fluids. Disposition Disposition: Home, Self Care Discharge Date/Time: 01/24/22 16:37
[2022-01-24] MEDS: 0.9% Normal Saline 1,000 ML 999 ML IV (14:17)
[2022-01-24 14:30] LABS: Absolute Lymphocyte Count 1.45 X10^3/uL (0.83-4.51); Absolute Neutrophil Count 4.9 X10^3/uL (2.0-7.7); Basophil# 0.01 X10^3/uL; Basophil% 0.1 % (0-1); Hematocrit 40.2 % (37-47); Hemoglobin 14.2 g/dL (12.0-15.0); Lymphocyte # 1.45 X10^3/ul (0.83-4.51); Mean Corp Hgb Conc 35.3 g/dL (32-36); Mean Corpuscular Hgb 31.5 pg (27.0-32.0); Mean Corpuscular Volume 89.1 fL (81-99); Monocyte# 0.51 X10^3/uL; Monocyte% 7.4 % (0-10); NRBC Flagged by Analyzer 0 % (0-5); Neutrophil % 71.1 % (47-70); Platelet Count 106 K/mm3 (150-450); RBC Distribution Width CV 11.9 % (11.6-14.6); RBC Distribution Width SD 38.5 fl (35.1-43.9); Red Blood Count 4.51 M/mm3 (4.2-5.4); White Blood Count 6.9 K/mm3 (4.4-11.0)
[2022-01-24 14:42] LABS: Anion Gap 8 (5-15); BUN 26 mg/dL (7-18); BUN/Creat Ratio 25.2 RATIO (10-20); Chloride 97 mmol/L (98-107); Creatinine, Serum 1.03 mg/dL (0.55-1.02); EST Glomerular Filtration Rate 56 mL/min (>60); Est Glom Filt Rate - Afr Amer 68 mL/min (>60); Estimated Creatinine Clearance 37.26 ml/min; Glucose 98 mg/dL (74-106); Potassium 3.4 mmol/L (3.5-5.1); Sodium Level 136 mmol/L (136-145)
[2022-01-24] MEDS: Potassium Chloride Oral Tablet 20 MEQ PO (16:26)
[2022-01-24 16:28] VITALS: BP 108/67; PULSE 81; RESP 16; O2SAT 97
== END 2022-01-24 16:37 | disposition home or self-care (01) ==
PROVIDERS: Physician Assistant; Emergency Provider Emergency Medicine; PCP Student in an Organized Health Care Education/Training Program; Visit Provider Emergency Medicine
DX: U07.1 COVID-19 (principal); E87.6 Hypokalemia; E78.5 Hyperlipidemia, unspecified; I10 Essential (primary) hypertension; R11.2 Nausea with vomiting, unspecified; R19.7 Diarrhea, unspecified; Z79.899 Other long term (current) drug therapy
CPT/HCPCS: 80048; 85025; 96360; 96361; 99282; J7030; A4216

== ENCOUNTER → 2022-08-22 | Outpatient (CLI) | payer MEDICARE, SELFPAY ==
--- NOTE | 2022-08-22 12:16 | BI_ITS ---
MAMMOGRAPHY - BILATERAL SCREENING REASON FOR EXAM: Female, 72 years old. Routine annual screening examination. PERTINENT HISTORY: Grandmother with breast cancer. Aunt with breast cancer. TECHNIQUE: Digital bilateral breast chely (3D mammographic acquisition) in the CC and MLO projections. 2-D mediolateral oblique (MLO) and craniocaudad (CC) views of both breasts were obtained. CAD: Full Field Digital Mammography with Computer Added Detection was performed. COMPARISON: Comparison is made with prior examination dated August 20, 2021 and August 18, 2020. FINDINGS: Breast Composition: The breasts are heterogeneously dense, which may obscure small masses. There is a 5.6 mm x 8.6 mm nodular density seen in the medial aspect of the left breast on the craniocaudad view. The patient will be recalled for additional views including compression spot views. Stable small benign-appearing bilateral axillary lymph node. No other significant abnormalities are identified. BI/SCRN MAMM (CAD)W/CHELY BILAT IMPRESSION: 5.6 mm x 8.6 mm nodular density in the medial aspect of the left breast as seen on the craniocaudad view. The patient will be recalled for compression spot views. Recall Side: Left Breast ASSESSMENT CATEGORY: BIRADS Category 0: Incomplete. Need additional imaging evaluation. A letter regarding these results will be sent to the patient by the facility within 30 days. Approximately 10% of breast cancers are not detected by mammography. A normal mammogram should not delay biopsy of a clinically suspicious abnormality. [id number] Electronically Signed: Zbigniew Florez MD at 13:19 EDT ,
== END | disposition home or self-care (01) ==
LOC: OPBI 12:14
PROVIDERS: PCP Student in an Organized Health Care Education/Training Program; Referring Provider Obstetrics & Gynecology; Visit Provider Obstetrics & Gynecology
DX: Z12.31 Encounter for screening mammogram for malignant neoplasm of breast (principal); Z80.3 Family history of malignant neoplasm of breast
CPT/HCPCS: 77063; 77067

== ENCOUNTER → 2022-09-03 | Outpatient (CLI) | payer MEDICARE, SELFPAY ==
--- NOTE | 2022-09-03 14:20 | US_ITS ---
EXAM: Diagnostic left breast mammogram diagnostic unilateral left breast ultrasound REASON FOR EXAM: Female, 72 years old. Further assessment for abnormal mammogram findings. PERTINENT HISTORY: Grandmother with breast cancer. Aunt with breast cancer. TECHNIQUE: Digital left breast dusty (3D mammographic acquisition) in the CC and MLO projections. 2-D mediolateral oblique (MLO) and craniocaudad (CC) views of the left breast were obtained. CAD: Full Field Digital Mammography with Computer Added Detection was performed. Real-time peacock scale and color sonographic images were obtained of the left inner breast from the 6:00 to 12:00 position. COMPARISON: Screening mammogram from 08/22/2022, 08/20/2021. FINDINGS: Mammogram findings: Breast Composition: There are scattered areas of fibroglandular density. Spot compression views of the left inner breast were obtained. There is some persistence of the asymmetry in the inner breast, however this gives appearance of normal fibroglandular tissue. Ultrasound was obtained for further assessment of the left breast. Ultrasound findings: The left inner breast from the 6:00 to 12:00 position was assessed with ultrasound. Normal fibroglandular tissue. No abnormal masses or fluid collections. US/Breast Limited Unilateral IMPRESSION: Normal fibroglandular tissue on mammogram examination without findings to suggest malignancy. No abnormal masses or fluid collections on ultrasound examination. ASSESSMENT CATEGORY: BIRADS Category 1: Negative. A letter regarding these results will be sent to the patient by the facility within 30 days. Return to annual screening mammography is recommended. Approximately 10% of breast cancers are not detected by mammography. A normal mammogram should not delay biopsy of a clinically suspicious abnormality. Electronically Signed: Tavon Lim DO at 13:32 EDT ,
== END | disposition home or self-care (01) ==
LOC: OPBI 14:19
PROVIDERS: PCP Student in an Organized Health Care Education/Training Program; Referring Provider Obstetrics & Gynecology; Visit Provider Obstetrics & Gynecology
DX: N63.0 Unspecified lump in unspecified breast (principal); R92.8 Other abnormal and inconclusive findings on diagnostic imaging of breast
CPT/HCPCS: 76642; 77065

== ENCOUNTER → 2023-09-01 | Outpatient (CLI) | payer MEDICARE, SELFPAY ==
--- NOTE | 2023-09-01 12:12 | BI_ITS ---
MAMMOGRAPHY - BILATERAL SCREENING REASON FOR EXAM: Female, 73 years old. Routine annual screening examination. PERTINENT HISTORY: Grandmother with breast cancer. Aunt with breast cancer. TECHNIQUE: Digital bilateral breast chely (3D mammographic acquisition) in the CC and MLO projections. 2-D mediolateral oblique (MLO) and craniocaudad (CC) views of both breasts were obtained. CAD: Full Field Digital Mammography with Computer Added Detection was performed. COMPARISON: Comparison is made with prior study dated August 22, 2022 and September 03, 2022. FINDINGS: Breast Composition: The breasts are heterogeneously dense, which may obscure small masses. There are no dominant masses or suspicious calcifications. Stable small bilateral axillary lymph nodes. No other significant abnormalities are identified. There has been no significant change since the prior study. BI/SCRN MAMM (CAD)W/CHELY BILAT IMPRESSION: Stable bilateral screening mammogram. Yearly follow-up mammogram recommended. (A) ASSESSMENT CATEGORY: BIRADS Category 2: Benign. A letter regarding these results will be sent to the patient by the facility within 30 days. Approximately 10% of breast cancers are not detected by mammography. A normal mammogram should not delay biopsy of a clinically suspicious abnormality. [id number] Electronically Signed: Zbigniew Florze MD at 13:35 EDT ,
== END | disposition home or self-care (01) ==
LOC: OPBI 12:12
PROVIDERS: PCP Student in an Organized Health Care Education/Training Program; Referring Provider Advanced Practice Midwife; Visit Provider Advanced Practice Midwife
DX: Z12.31 Encounter for screening mammogram for malignant neoplasm of breast (principal)
CPT/HCPCS: 77063; 77067

== ENCOUNTER 2023-09-26 16:07 | Emergency (ER) | payer MEDICARE, SELFPAY ==
[2023-09-26 16:08] VITALS: BP 165/96; PULSE 96; RESP 15; TEMP 36.8; O2SAT 98
--- NOTE | 2023-09-26 16:27 | EX.ED.DYSGE1 ---
HPI History of Present Illness Chief Complaint: Allergic Reaction Detail of Chief Complaint: Allergic reaction to hymenoptera envenomation Informant: patient Onset/Context/Timing Onset: Hours (0.5) Context: Sudden Onset Timing: Intermittent Quality: Rash began area of envenomation and throat swelling Location: Right foot and throat Current Severity: Mild Maximum Severity: Severe Worsened by: Hymenoptera envenomation Relieved by: EpiPen Associated Symptoms Associated Symptoms: No other symptoms Narrative Narrative: patient is a 73-year-old woman. 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 Last time she was stung was 10 years ago. She was stung prior to presentation dorsum of the right foot. Because of her having symptoms she used her EpiPen. Her only present symptom is some redness and itching of the dorsum of her foot. She denied ocular, visual or auditory symptoms. She denied change in voice. She denied difficulty swallowing. She denied shortness of breath. She denied swelling of her lips or tongue. She did feel her throat was swelling. She denied wheezing. She denies abdominal pain. She denied nausea, vomiting or diarrhea. She denied orthostatic symptoms. Prior similar symptoms: Yes [facility] Medical History Hyperlipidemia Hypertension Anxiety Home Medications ?Medication ?Instructions ?Recorded ?Last Taken ?Type acyclovir 200 mg capsule 200 mg PO DAILY 05/26/17 Unknown History hydrochlorothiazide 25 mg tablet 25 mg PO DAILY 05/26/17 Unknown History lisinopril 10 mg tablet 10 mg PO DAILY 05/26/17 Unknown History lactobacillus combination no.8 3 3,000 mmu cells PO DAILY 08/05/19 Unknown History billion cell capsule (Adult Probiotic) omeprazole 20 mg capsule,delayed 20 mg PO DAILY 08/05/19 Unknown History release rosuvastatin 20 mg tablet (Crestor) 20 mg PO DAILY 08/05/19 Unknown History sucralfate 1 gram tablet (Carafate) 1 g PO Q6H #56 tabs 10/10/21 Unknown Rx ondansetron HCl 4 mg tablet 4 mg PO Q8H PRN nausea and 01/24/22 Unknown Rx vomiting #20 tabs aspirin 81 mg tablet,delayed 81 mg PO DAILY 08/25/23 Unknown History release (Adult Aspirin Regimen) cholecalciferol (vitamin D3) 50 50 mcg PO DAILY 08/25/23 Unknown History mcg (2,000 unit) capsule docusate sodium 100 mg capsule 100 mg PO DAILY 08/25/23 Unknown History (Colace) mecobalamin (vitamin B12) 1,000 1,000 mcg PO DAILY 08/25/23 Unknown History mcg chewable tablet mirabegron 50 mg tablet,extended 50 mg PO DAILY 08/25/23 Unknown History release 24 hr (Myrbetriq) multivitamin with minerals 1 tab PO DAILY 08/25/23 Unknown History (Hair,Skin and Nails tablet) potassium chloride 10 mEq 10 meq PO DAILY 08/25/23 Unknown History tablet,extended release psyllium husk 0.4 gram capsule 0.4 g PO DAILY 08/25/23 Unknown History (Metamucil) epinephrine 0.3 mg/0.3 mL 0.3 mg (0.3 mL) IM X1 #2 ea 09/26/23 Unknown Rx injection, auto-injector (EpiPen) Allergy/AdvReac Type Severity Reaction Status Date / Time acetaminophen (From Tylenol) Allergy Mild other Verified 08/25/23 09:41 amoxicillin (From Augmentin) Allergy Mild other Verified 08/25/23 09:41 clavulanic acid (From Allergy Mild other Verified 08/25/23 09:41 Augmentin) codeine Allergy Mild other Verified 08/25/23 09:41 erythromycin base Allergy Mild other Verified 08/25/23 09:41 nitrofurantoin (From Allergy Mild other Verified 08/25/23 09:41 Macrobid) Sulfa (Sulfonamide Allergy Mild other Verified 08/25/23 09:41 Antibiotics) sulfamethoxazole (From Allergy Mild other Verified 08/25/23 09:41 Bactrim) Tetracyclines Allergy Mild other Verified 08/25/23 09:41 trimethoprim (From Bactrim) Allergy Mild other Verified 08/25/23 09:41 venom-honey bee Allergy Mild other Verified 08/25/23 09:41 Family History Aunt Breast cancer Grandmother Breast cancer Surgical History Tubal ligation status H/O hernia repair Social History Smoking Status: Never smoker alcohol intake: current details: social substance use type: does not use caffeine: Yes what type of physical activity do you participate in: walking seatbelt use: always do you feel safe at home: Yes additional social history: Pop- both are retired ROS ROS ED Constitutional Constitutional ED: Denies chills, fever(s) or subjective Eyes Eyes: Denies blurry vision or change in vision ENT ENT ED: Reports other Details: Throat swelling. ; Denies ear pain, rhinorrhea or sore throat Cardiovascular Cardiovascular: Denies chest pain or palpitations Respiratory/Chest Respiratory/Chest: Denies cough, dyspnea or dyspnea on exertion Gastrointestinal Gastrointestinal: Denies abdominal pain, diarrhea, nausea or vomiting Musculoskeletal Musculoskeletal: Denies arthralgias or myalgias Integumentary Reports rash Neurologic Neurologic: Denies paresthesias or weakness Psychiatric Psychiatric: Denies anxiety or depression Hematologic/Lymphatic Hematologic/Lymphatic: Reports systems reviewed and no addt'l complaints, except as documented Allergic/Immunologic Allergic/Immunologic ED: Reports other Details: Noted in the HPI narrative ; Denies mouth swelling or tongue swelling EXAM Physical Exam Const Vital Signs: 09/26/23 16:08 Temperature 98.2 F Temperature Source Temporal Pulse Rate 96 Respiratory Rate 15 Blood Pressure 165/96 H Blood Pressure Mean 119 Pulse Ox 98 Oxygen Delivery Method Room Air Positive well nourished and well developed General Appearance ED: well developed and NAD; Negative for cyanotic or diaphoretic HEENT Reports moist mucous membranes HEENT Narrative: Ears are normal. Nares patent. There is no angioedema noted. Eyes PERRL and EOMs intact bilaterally General Eye ED: Negative for scleral icterus Neck no lymphadenopathy, supple and no JVD Neck Narrative: Trachea is midline. There is no history expiratory stridor. Resp normal respiratory effort and clear to auscultation bilaterally Cardio regular rate, regular rhythm, S1 normal heart sound, S2 normal heart sound and no murmurs GI normal to inspection, nondistended, normoactive bowel sounds Extremity Negative for normal to inspection Extremity Narrative: Rash dorsum of right foot and site of envenomation. There is no retained stinger. This would suggest that this was not a honeybee and may have been a yellowjacket or wasp. Neuro oriented x3, CN's II-XII intact bilaterally and no sensory deficits noted Sensorium / Orientation: alert Motor Exam: strength 5/5 throughout Psych mental status grossly normal Skin no rashes or lesions noted and no wounds General Skin Exam: elasticity normal MDM MDM MDM Narrative Medical decision making narrative: Patient with onset of generalized allergic reaction to hymenoptera envenomation. This was aborted by her administering her EpiPen. Will observe for 2 hours. Patient and family were told she will be observed for a couple hours. She will require prescription for EpiPen. Treatment and Re-Evaluation :: Patient was reassessed at 1758. Her rash has resolved. She has no symptoms. Plan is to discharge to home with prescription for EpiPen. Discharge Plan Triage Chief Complaint: Allergic Reaction ED Provider: Anam Kurtz Dx/Rx/DC Orders Clinical Impression: Anaphylactic reaction to wasp sting, Elevated blood pressure reading with diagnosis of hypertension Instructions: ED BEE STING General Allergic Rxn Prescriptions: New epinephrine [EpiPen] 0.3 mg/0.3 mL auto-injector 0.3 mg IM X1 Qty: 2 0RF No Action omeprazole 20 mg capsule,delayed release(DR/EC) 20 mg PO DAILY rosuvastatin [Crestor] 20 mg tablet 20 mg PO DAILY Adult Probiotic 3 billion cell capsule 3,000 mmu cells PO DAILY Rx Instructions: administer with a meal mirabegron [Myrbetriq] 50 mg tablet extended release 24 hr 50 mg PO DAILY psyllium husk [Metamucil] 0.4 gram capsule 0.4 g PO DAILY mecobalamin (vitamin B12) 1,000 mcg tablet,chewable 1,000 mcg PO DAILY docusate sodium [Colace] 100 mg capsule 100 mg PO DAILY Hair,Skin and Nails Tablet 1 tab PO DAILY cholecalciferol (vitamin D3) 50 mcg (2,000 unit) capsule 50 mcg PO DAILY aspirin [Adult Aspirin Regimen] 81 mg tablet,delayed release (DR/EC) 81 mg PO DAILY potassium chloride 10 mEq tablet extended release 10 meq PO DAILY lisinopril 10 MG tablet 10 mg PO DAILY Patient Comments: TAKE 1 TABLET BY MOUTH ONCE DAILY. acyclovir 200 MG capsule 200 mg PO DAILY Patient Comments: hydrochlorothiazide 25 MG tablet 25 mg PO DAILY Patient Comments: TAKE 1 TABLET BY MOUTH ONCE DAILY. sucralfate [Carafate] 1 gram tablet 1 g PO Q6H Qty: 56 0RF ondansetron HCl 4 mg tablet 4 mg PO Q8H PRN (Reason: nausea and vomiting) Qty: 20 0RF Primary Care Provider: Nghia Winters Referrals: Nghia Winters [[facility]] - Print Language: Ghanaian Disposition Disposition: Home, Self Care
[2023-09-26 18:07] VITALS: BP 138/71; PULSE 78; RESP 16; O2SAT 99
[2023-09-26 18:08] VITALS: BP 138/71; PULSE 78; RESP 16; TEMP 36.7; O2SAT 99
== END 2023-09-26 18:09 | disposition home or self-care (01) ==
PROVIDERS: Emergency Provider Emergency Medicine; PCP Student in an Organized Health Care Education/Training Program; Visit Provider Emergency Medicine
DX: T63.461A Toxic effect of venom of wasps, accidental (unintentional), initial encounter (principal); I10 Essential (primary) hypertension; E78.5 Hyperlipidemia, unspecified; F41.9 Anxiety disorder, unspecified; Z79.82 Long term (current) use of aspirin; Z79.899 Other long term (current) drug therapy
CPT/HCPCS: 99282; A4216

== ENCOUNTER → 2024-09-01 | Outpatient (CLI) | payer MEDICARE, SELFPAY ==
--- NOTE | 2024-09-01 14:36 | BI_ITS ---
EXAM: SCRN MAMM (CAD)W/CHELY BILAT DATE: 09/01/2024 CLINICAL HISTORY: F, Age 74 y/o , SCREEN FOR BREAST CANCER BREAST CANCER RISK ASSESSMENT: Not calculated at this time. TECHNIQUE: Bilateral screening digital breast tomosynthesis with 2D and 3D images. Computer aided detection. COMPARISON: Prior exam(s) dated 09/01/2023, 09/03/2022, 08/22/2022. FINDINGS: TISSUE DENSITY: The breast tissue is heterogeneously dense, which may obscure small masses. The mammogram demonstrates that the patient has dense breasts. Supplemental screening with whole breast ultrasound or MRI may be considered for further evaluation. Bilateral Breast Mammographic Findings: There is an asymmetry in the central left breast at posterior depth visualized on the MLO view. No significant masses, calcifications or other abnormalities are identified in the right breast. BI/SCRN MAMM (CAD)W/CHELY BILAT IMPRESSION: The asymmetry in the central left breast at posterior depth requires further ev aluation. Recommend diagnostic mammogram of the left breast and ultrasound on the day of diagnostic if indicated. OVERALL FINAL ASSESSMENT BI-RADS 0: INCOMPLETE - NEED ADDITIONAL IMAGING EVALUATION. RECOMMENDATION: Routine annual follow-up in 1 Year A letter with findings and recommendations will be mailed to the patient. Reading Location: [id number]
== END | disposition home or self-care (01) ==
LOC: OPBI 14:36
PROVIDERS: PCP Student in an Organized Health Care Education/Training Program; Referring Provider Obstetrics & Gynecology; Visit Provider Obstetrics & Gynecology
DX: Z12.31 Encounter for screening mammogram for malignant neoplasm of breast (principal)
CPT/HCPCS: 77063; 77067

== ENCOUNTER → 2024-09-09 | Outpatient (CLI) | payer MEDICARE, SELFPAY ==
--- NOTE | 2024-09-09 13:42 | BI_ITS ---
EXAM: DIAG MAMM W/CAD, BILAT 09/09/2024 CLINICAL HISTORY: F, Age 74 y/o , ABNORMAL SCREENING MAMMOGRAM TECHNIQUE: DIAG MAMM W/CAD, BILAT.. Compression spot views of the left breast in the mediolateral oblique and craniocaudad projections were obtained. COMPARISON: Prior exam(s) dated prior mammogram dated September 01 2024. FINDINGS: TISSUE DENSITY: The breasts are heterogeneously dense, which may obscure small masses. Bilateral Breast Mammographic Findings: No significant masses, calcifications or other abnormalities are identified. Correlation with ultrasound recommended. BI/DIAG MAMM W/CAD, BILAT IMPRESSION: Sonographic correlation of the central medial portion of the left breast recomm ended. OVERALL FINAL ASSESSMENT BI-RADS 0: INCOMPLETE - NEED ADDITIONAL IMAGING EVALUATION. RECOMMENDATION: Ultrasound Recommended A letter with findings and recommendations will be mailed to the patient. Reading Location: [id number]
--- NOTE | 2024-09-09 13:42 | US_ITS ---
PROCEDURE: BREAST LIMITED UNILATERAL 09/09/2024 REASON FOR EXAM: LEFT BREAST ASSYMETRY TECHNIQUE: BREAST LIMITED UNILATERAL COMPARISON: Prior mammogram dated September 02, 1999 25 and prior mammogram done earlier in the day.. FINDINGS: Left breast ultrasound was targeted to the medial aspect of the left breast.. There is 1.7 cm 1 cm 0.4 cm benign-appearing lymph node at the 9 o'clock position of the breast at 4 cm from the nipple. US/Breast Limited Unilateral IMPRESSION: Impression: Findings suggestive of a 1.7 cm x 1 cm x 0.4 cm benign-appearing ly mph node at the 9 o'clock position of the breast at 4 cm from the nipple. Birads: BI-RADS 2: BENIGN. RECOMMEND ANNUAL MAMMOGRAPHIC SCREENING. Reading Location: [id number]
== END | disposition home or self-care (01) ==
LOC: OPBI 13:41
PROVIDERS: PCP Student in an Organized Health Care Education/Training Program; Referring Provider Obstetrics & Gynecology; Visit Provider Obstetrics & Gynecology
DX: R92.8 Other abnormal and inconclusive findings on diagnostic imaging of breast (principal)
CPT/HCPCS: 76642; 77061; 77066; G0279